=== PATIENT | male | born 1960 | race Caucasian/White ===

== ENCOUNTER → 2021-03-13 01:28 | Outpatient (CLI) | payer BC, OTHER, SELFPAY ==
[2021-03-14 20:43] LABS: SARS-CoV-2 RNA PCR Positive
== END ==
PROVIDERS: PCP Internal Medicine; Visit Provider Clinical Nurse Specialist
DX: U07.1 COVID-19 (principal)
CPT/HCPCS: C9803; U0003; U0005

== ENCOUNTER 2021-08-06 07:48 | Outpatient (CLI) | payer BC, OTHER, SELFPAY | END 2021-08-06 07:49 | disposition home or self-care (01) | PROVIDERS: PCP Internal Medicine; Visit Provider Nurse Practitioner | DX: H90.3 Sensorineural hearing loss, bilateral (principal) | CPT/HCPCS: 92557; 92567 ==

== ENCOUNTER 2021-09-11 14:00 | Outpatient (RCR) | payer OTHER, BC, SELFPAY ==
--- NOTE | 2021-08-06 11:06 | PTOPEVAL ---
PHYSICAL THERAPY EVALUATION AND PLAN OF CARE Thank you for referring Cachorro Darby to [facility].? The patient is scheduled to be seen for therapy?1x/week for 4 weeks. Please review, sign, date and return this plan of care RAOUL. I agree with and certify that the following plan of care is medically necessary. Referring Physician Date Attending Provider: Danuta Patiño NP Evaluation Outpatient Past Medical History Past Medical History Source of Past Medical History Patient Musculoskeletal History Hx Back Injury Yes: 3 injuries leading to surgery Hx Spinal Surgery Yes: 3, no hardware Hx Other Musculoskeletal Disorders Yes: R ACL arthroscopic repair and clean up Psychosocial History Hx Anxiety Yes Hx Depression Yes Hx Post Traumatic Stress Disorder Yes: [facility] Has Past Pain Affected Your Daily Life Yes Diagnosis radiculopathy Onset May, 2021 Subjective Information Pt states around Query Text:As Reported By Patient/ in 2020 fell and caught Family himself and states he strained a muscle in his neck. In june of 2021 he was having radiating symptoms and he suspected this was a heart attack, the ED ruled this out and attributed his radiating pain to his cervical spine. He is having radiating neck pain down his shoulder and into his forearm and into his 2nd and 3rd fingers. Pt states he has pulled a muscle in his neck before, but never a pain like this. Pt states he exercises regularly in the gym . Pt states he has had 3 previous back surgeries. He recieved a cortizone inection 07/07/21 and this helped minimally with his pain. Diagnostic Tests MRI For This Problem Yes Other Tests For This Problem No Self Report Pain Assessment Left Arm(s) Reported Pain Level 5 Pain Description Burning,Dull,Numbness, Throbbing Pain Radiation Left Arm,Left Elbow,Left Shoulder Other Pain Description numbness into 2nd and 3rd digit on the L L
--- NOTE | 2021-09-09 08:17 | PCPTNOTE ---
Patient did not show up for scheduled appointment this date.
--- NOTE | 2021-09-11 15:02 | PTOPEVAL ---
PHYSICAL THERAPY DISCHARGE NOTE Thank you for referring Cachorro Darby to [facility].? Please review, sign, date and return this plan of care RAOUL. I agree with and certify that the following plan of care is medically necessary. Referring Physician Date Attending Provider: Danuta Patiño METALLURGICAL SPECIALIST Discharge Pain History Diagnosis radiculopathy Onset May, 2021 Subjective Information is here today following 4 Query Text:As Reported By Patient/ weeks of physical therapy. He Family is continuing experience significant symptoms in the neck and hands. States that the pain is spreading. States that he is having surgery on for fusion to some of the cervical vertabrae. Self Report Pain Assessment Left Arm(s) Reported Pain Level 5 Pain Description Burning,Dull,Numbness, Throbbing Other Pain Description numbness into 2nd and 3rd digit on the L Pain Aggravating Factors Prolonged Position Pain Score Pain Score 5: Self Report Interventions Used Interventions Used By Clinicians Education,Exercise Pain Relief Interventions Used By Home Traction,Medication, Patient Position Change Cervical and Lumbar ROM Cervical ROM Cervical Flexion (0-60) 45 Query Text:Active in Degrees Cervical Extension (0-70) 35 Query Text:Active in Degrees Cervical Rotation Right (0-90) 55 Query Text:Active in Degrees Cervical Rotation Left (0-90) 45 Query Text:Active in Degrees Cervical ROM Comments Pain with end range of motion Upper Extremity Range of Motion General Upper Extremity Range of Motion Gross Upper Extremity Range of Motion B shoulders WFL Comments Upper Extremity Muscle Strength Testing General Upper Extremity Strength Gross Upper Extremity Strength Comments Grossly 5/5 bilaterally; left 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
== END 2021-09-12 16:04 | disposition home or self-care (01) ==
LOC: ANHPT 14:00
PROVIDERS: PCP Internal Medicine; Visit Provider Nurse Practitioner
DX: M54.12 Radiculopathy, cervical region (principal); H91.90 Unspecified hearing loss, unspecified ear
CPT/HCPCS: 97110; 97140; 97161

== ENCOUNTER → 2022-03-18 14:58 | Outpatient (CLI) | payer OTHER, SELFPAY ==
--- NOTE | ~2022-03-18 | XR_ITS ---
EXAM: XR knee RT 2V DATE: 03/18/2022 15:35 HISTORY: M25.561 - Pain in right knee . COMPARISON: None available. FINDINGS: Decreased mineralization. No fracture or dislocation. No lytic or blastic lesion. Mild med ial joint space narrowing. Mild tricompartmental osteophytosis. No erosion or periosteal change. Soft tissues within normal limits. Small volume joint fluid. IMPRESSION: Mild tricompartmental osteoarthritis. Small right knee joint effusion. Reviewed, dictated and finalized at location K. IMPRESSION: Mild tricompartmental osteoarthritis. Small right knee joint effusi on.
--- NOTE | ~2022-03-18 | XR_ITS ---
EXAM: XR hip RT min 2V DATE: 03/18/2022 15:35 HISTORY: M25.551 - Pain in right hip . COMPARISON: None available. FINDINGS: Normal mineralization. No fracture or dislocation. No lytic or blastic lesion. Mild superi or right hip joint space narrowing with subchondral sclerosis. No erosion or periosteal change. Soft tissues within normal limits. IMPRESSION: Mild right hip osteoarthritis. Reviewed, dictated and finalized at location K.
== END ==
PROVIDERS: PCP Nurse Practitioner; Visit Provider Nurse Practitioner
DX: M16.11 Unilateral primary osteoarthritis, right hip (principal); M17.11 Unilateral primary osteoarthritis, right knee
CPT/HCPCS: 73502; 73560

== ENCOUNTER 2022-05-21 09:48 | Outpatient (CLI) | payer OTHER, SELFPAY ==
--- NOTE | 2022-05-21 11:30 | NEURO_ITS ---
Impression: # Complains of left upper extremity pain and decreased hand grasp strength. Status post cervical surgery. # Left ulnar neuropathy across the elbow. # No Carpal Tunnel Syndrome. # Needle/EMG exam of proximal muscles abnormal. # Clinical correlation recommended. Motor Nerve Conduction Upper Extremities Median Nerve Conduction Velocity (m/sec) Terminal Latency (msec) Response Voltage(mV) Elbow-Wrist Wrist Elbow Wrist Right Left 59 3.8 1 1 Ulnar Nerve Conduction Velocity (m/sec) Terminal Latency (msec) Response Voltage(mV) Above Elbow Below Elbow Wrist Above Elbow Below Elbow Wrist Right Left 47 50 2.6 7 6 8 F-Wave Latency Median (ms) Ulnar (ms) Right Left 28.9 28.7 Sensory Nerve Conduction Upper Extremities Median Nerve Stimulation Terminal Latency (msec) Wrist/Digit Response Voltage (uV) Wrist Right Left 3.2/3.1 52/28 Ulnar Nerve Stimulation Terminal Latency (msec) Wrist/Digit Response Voltage (uV) Wrist Right Left 2.8 27 Radial Nerve Terminal Latency (msec) Response Voltage(mV) Right Left 2.3 18 Left Right Muscles Examined Fibrillation Fasciculation Scarcity Voltage Duration Left Right Left Right Left Right Left Right Left Right X Deltoid X Biceps X Brachioradialis X Triceps X Pronator Teres X Ext Indicis X Ext Digitorum X Abd Poll Brev X 1st Dorsal Interosseus Reduced >12ms X Abd Dig Min Reduced >12ms MTDD
== END 2022-05-21 09:49 | disposition home or self-care (01) ==
LOC: ANHNEURO 09:50
PROVIDERS: PCP Nurse Practitioner; Visit Provider Neurological Surgery
DX: M79.602 Pain in left arm (principal); G56.22 Lesion of ulnar nerve, left upper limb
CPT/HCPCS: 95886; 95909

== ENCOUNTER 2023-09-01 09:44 | Outpatient (CLI) | payer BC, OTHER, SELFPAY ==
[2023-09-01 18:41] LABS: Basophils Percent Auto 0.5 % (0.2-1.2); Eosinophils Absolute Auto 0.1 K/mm3 (0-0.3); Eosinophils Percent Auto 1.5 % (0-4.4); Hematocrit 41.1 % (42.0-52.0); Hemoglobin 13.4 g/dL (14.0-18.0); Immature Granulocyte Absolute 0.02 K/mm3 (0.00-0.031); Immature Granulocyte Percent A 0.3 % (0-0.5); Lymphocytes Absolute Auto 1.93 K/mm3 (0.9-3.2); Lymphocytes Percent Auto 31.7 % (18.3-44.2); Mean Corpuscular HGB Conc 32.6 g/dl (32-36); Mean Corpuscular Hemoglobin 29.3 pg (26-34); Mean Corpuscular Volume 89.7 fl (80-100); Mean Platelet Volume 10.7 fl (7.4-10.4); Monocytes Absolute Auto 0.7 K/mm3 (0.1-0.6); Monocytes Percent Auto 11.7 % (2.6-8.5); Neutrophils Absolute Auto 3.3 K/mm3 (1.3-6.7); Neutrophils Percent Auto 54.3 % (45.5-73.1); Platelet Count Result 260 k/mm3 (150-375); Red Blood Count 4.58 M/mm3 (4.6-6.20); Red Cell Distribution Width 13.2 % (11.5-14.5); White Blood Count 6.1 K/mm3 (4.5-10.0)
[2023-09-01 18:58] LABS: Alanine Aminotransferase 35 U/L (6-50); Albumin Level 3.9 g/dL (3.5-5.1); Alkaline Phosphatase 65 U/L (38-126); Anion Gap 3 mmol/L (8-16); Aspartate Amino Transferase 43 U/L (17-59); Bilirubin,Total 0.4 mg/dL (0.2-1.3); Blood Urea Nitrogen 22 mg/dL (9-20); Calcium 9.3 mg/dL (8.4-10.2); Carbon Dioxide 30 mmol/L (22-30); Chloride 106 mmol/L (98-107); Estimated Glomerular Filt Rate > 60; Glucose 57 mg/dL (65-110); Potassium 4.1 mmol/L (3.4-5.0); Sodium 139 mmol/L (137-145)
[2023-09-01 19:07] LABS: Appearance Urine Turbid (Clear); Bacteria Urine None Seen /hpf; Bilirubin Urine Negative (Negative); Blood Urine Negative (Negative); Color Urine Yellow (Yellow); Glucose Urine UA Negative (Negative); Ketones Urine Negative (Negative); Leukocyte Esterase Ur Negative LEU/UL (Negative); Nitrate Urine Negative (Negative); Non Pathogenic Casts 0-2; Protein Urine Negative (Negative); RBC Urine 0-2 /hpf (0-2); Specific Grav Ur 1.026 (1.001-1.035); Squamous Epithelial Cell Urine None seen /hpf (Few); Urobilinogen Urine 0.2 mg/dL (<2.0); WBC Urine 0-5 /hpf
[2023-09-01 19:15] LABS: HIV 1/2 Ab P24 Ag Result Negative (Negative)
[2023-09-01 19:20] LABS: Add Urine Microscopic? YES
[2023-09-01 19:27] LABS: Erythrocyte Sedimentation Rate 12 mm/hr (0-20)
[2023-09-01 20:21] LABS: Hepatitis C Virus Antibody Negative (Negative)
[2023-09-02 11:14] LABS: Folic Acid 4.1 ng/mL (2.76->20)
== END 2023-09-01 09:45 | disposition home or self-care (01) ==
LOC: ANHGOSHLAB 09:46
PROVIDERS: PCP Internal Medicine; Visit Provider Nurse Practitioner
DX: R63.4 Abnormal weight loss (principal); D64.9 Anemia, unspecified
CPT/HCPCS: 36415; 80053; 81001; 82607; 82728; 82746; 84443; 85025; 85652; 86703; 86803; G0432

== ENCOUNTER → 2023-09-01 10:00 | Outpatient (CLI) | payer BC, OTHER, SELFPAY ==
--- NOTE | ~2023-09-01 | XR_ITS ---
Clinical Indication: Weight loss PA and lateral views of the chest: Comparison: None Findings: Small calcified granulomas are noted in the right lung. The lungs are otherwise clear, with out evidence of focal consolidation or pleural effusion. Cardiomediastinal silhouette is within norm al limits. Bones and soft tissues are unremarkable. Impression: No significant abnormality. Reviewed, dictated and finalized at [facility]. [employer] Impression: No significant abnormality.
== END ==
PROVIDERS: PCP Nurse Practitioner; Visit Provider Nurse Practitioner
DX: R63.4 Abnormal weight loss (principal)
CPT/HCPCS: 71046

== ENCOUNTER 2024-05-24 10:47 | Outpatient (CLI) | payer OTHER, SELFPAY ==
[2024-05-24 13:27] LABS: Cholesterol 144 mg/dL (0-200); HDL Direct 35 mg/dL; Triglycerides 77 mg/dL (<150)
[2024-05-24 13:38] LABS: LDL Cholesterol Direct 70 mg/dL
[2024-05-24 13:40] LABS: Basophils Percent Auto 0.3 % (0.2-1.2); Eosinophils Absolute Auto 0.1 K/mm3 (0-0.3); Eosinophils Percent Auto 1.6 % (0-4.4); Hematocrit 52.6 % (42.0-52.0); Hemoglobin 17.3 g/dL (14.0-18.0); Immature Granulocyte Absolute 0.01 K/mm3 (0.00-0.031); Immature Granulocyte Percent A 0.1 % (0-0.5); Lymphocytes Absolute Auto 2.45 K/mm3 (0.9-3.2); Lymphocytes Percent Auto 36.3 % (18.3-44.2); Mean Corpuscular HGB Conc 32.9 g/dl (32-36); Mean Corpuscular Hemoglobin 29.5 pg (26-34); Mean Corpuscular Volume 89.8 fl (80-100); Mean Platelet Volume 10.2 fl (7.4-10.4); Monocytes Absolute Auto 0.8 K/mm3 (0.1-0.6); Monocytes Percent Auto 11.4 % (2.6-8.5); Neutrophils Absolute Auto 3.4 K/mm3 (1.3-6.7); Neutrophils Percent Auto 50.3 % (45.5-73.1); Platelet Count Result 239 k/mm3 (150-375); Red Blood Count 5.86 M/mm3 (4.6-6.20); Red Cell Distribution Width 13.3 % (11.5-14.5); White Blood Count 6.8 K/mm3 (4.5-10.0)
[2024-05-24 13:56] LABS: Prostate Specific Antigen 0.8 ng/mL (< OR = 4.0)
== END 2024-05-24 10:48 | disposition home or self-care (01) ==
LOC: ANHGOSHLAB 10:49
PROVIDERS: PCP Nurse Practitioner; Visit Provider Nurse Practitioner
DX: D64.9 Anemia, unspecified (principal); Z12.5 Encounter for screening for malignant neoplasm of prostate; Z13.220 Encounter for screening for lipoid disorders
CPT/HCPCS: 36415; 80061; 82728; 84153; 85025; G0103

== ENCOUNTER 2024-05-31 00:07 | Day surgery (SDC) | payer OTHER, SELFPAY ==
[2024-05-17 14:28] VITALS: BMI 27.5
[2024-05-31 08:23] VITALS: BP 122/79; PULSE 72; RESP 18; TEMP 36.4; O2SAT 99
[2024-05-31] MEDS: LACTATED RINGERS 1,000 ML 150 ML IV CONT (08:34)
--- NOTE | 2024-05-31 09:07 | P.PNAN_ITS ---
Anes - Initial Pre Proc Eval Procedure: Operation Date: 05/31/24 09:30 Proposed Procedures p Screening Colonoscopy - Jn Acosta DO Date/Time: 05/31/24 09:07 Surgeon: Jn Acosta DO Pre Op Diagnosis: Screening for malignant neoplasm of colon Patient Data Age: 63 Gender: M Height: 1.65 m Weight: 80 kg Last Vital Signs Temp 97.5 F L 05/31/24 08:23 Pulse 72 05/31/24 08:23 Resp 18 05/31/24 08:23 BP 122/79 05/31/24 08:23 Pulse Ox 99 05/31/24 08:23 O2 Del Method Room Air 05/31/24 08:23 Allergies Allergy/AdvReac Type Severity Reaction Status Date / Time No Known Allergies Allergy Verified 05/31/24 08:21 Home Medications Medication Instructions Recorded Confirmed Type Adults Multivitamin 1 tablet PO DAILY 05/17/24 05/31/24 History Aspirin Child 81 mg PO DAILY 05/17/24 05/31/24 History B12 2,500 mcg PO DAILY 05/17/24 05/31/24 History Fish Oil 7,500 mcg PO DAILY 05/17/24 05/31/24 History cholecalciferol (vitamin D3) 6,000 units PO DAILY 05/17/24 05/31/24 History testosterone cypionate 100 mg/mL 0.75 mg IM WEEKLY 05/17/24 05/31/24 History intramuscular oil zinc-magnesium aspart-vit B6 2 tablet PO DAILY 05/17/24 05/31/24 History Patient hx anesthesia problems: none Family hx anesthesia problems: none Results Review: All pre-operative results and documents have been reviewed as part of the pre- operative evaluation. 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 Hearing loss Hemorrhoids Herniated disc Hypogonadism in male Lumbar radiculopathy Mumps Right knee pain Sleep apnea Vision abnormalities Weight gain Surgical History Surgical History (Updated 05/24/24 @ 09:13 by Ritu Beal CMA) H/O eye surgery H/O lumbosacral spine surgery x 3 1984, 1999, 2002 H/O neck surgery 2022 H/O surgical fusion joint C6 - C7 ACDF 09/23/21 Family History Family History Mother Family history of malignant neoplasm Father Family history of coronary artery disease Social History Social History Smoking status: Never smoker Smokeless tobacco user: chewing tobacco Alcohol intake: current Drinks per week: 1 Alcohol use details: occasional Substance use: never Substance use type: does not use Lack of Transportation: No Lack of Food: Never True Current Housing: I Have Housing Concerned About Future Housing: No Difficulty Paying Gas/Electric Bills: No Difficulty Paying for Meds: No Currently Unemployed: No Education: Associate Degree Difficulty w/ Childcare or Family Care: No Living arrangements: with family Occupation/Education: retired Gender identity (if verbalized by the patient): Male Spiritual care concerns: No Anes - Eval Final PreProcedure Day of Procedure 05/31/24 09:07 Patient weight: normal Heart: regular rate and rhythm Lungs: clear to auscultation Airway: Mallampati scale class II Neurological: alert and oriented Last oral intake: >/= 8 hours ASA classification: II Emergent: no Anesthetic plan: proceed Anesthesia type and monitoring: general GIVS and standard monitoring Results Review: All pre-operative results and documents have been reviewed as part of the pre- operative evaluation. Informed Consent: The patient's anesthetic plan and its attendant risks and benefits were discussed with the patient/family/POA. Questions were solicited and answers provided to the satisfaction of the patient/family/POA.
--- NOTE | 2024-05-31 09:35 | PM.IMHP ---
H&P: HPI History of Present Illness Date/Time: 05/31/24 09:35 Chief Complaint: History of colon polyps Narrative: this is a 63-year-old man who presents for colonoscopy. His last colonoscopy was 5 years ago and multiple polyps were removed at that time. He denies any hematochezia or melena. He denies any family history of colon cancer. Review of Systems Review of Systems: All systems reviewed & are unremarkable except as noted in HPI and below Constitutional: Constitutional: Denies chills, Denies fever(s), Denies headache(s) and Denies weight loss Eyes: Eyes: Denies change in vision ENT: Denies dizziness, Denies headache(s), Denies neck mass and Denies throat swelling Cardiovascular: Cardiovascular: Denies chest pain, Denies lightheadedness and Denies dyspnea Respiratory: Respiratory: Denies cough, Denies dyspnea and Denies wheezing Gastrointestinal: Gastrointestinal: Denies abdominal pain, Denies change in bowel habits, Denies nausea and Denies vomiting Genitourinary: Genitourinary: Denies hematuria and Denies dysuria Musculoskeletal: Musculoskeletal: Reports as per HPI Integumentary/Breasts: Skin/Breast: Reports as per HPI Neurologic: Denies dizziness and Denies headache(s) Allergic/Immunologic: Allergic/Immunologic: Denies throat swelling and Denies wheezing [facility] Past Medical History Medical History (Updated 05/24/24 @ 10:04 by Danuta Patiño NP) Acute right hip pain Arthritis Chicken pox Chondromalacia, 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 Hearing loss Hemorrhoids Herniated disc Hypogonadism in male Lumbar radiculopathy Mumps Right knee pain Sleep apnea Vision abnormalities Weight gain Surgical History Surgical History (Updated 05/24/24 @ 09:13 by Ritu Beal CMA) H/O eye surgery H/O lumbosacral spine surgery x 3 1984, 1999, 2002 H/O neck surgery 2022 H/O surgical fusion joint C6 - C7 ACDF 09/23/21 Family History Family History Mother Family history of malignant neoplasm Father Family history of coronary artery disease Social History Social History Smoking status: Never smoker Smokeless tobacco user: chewing tobacco Alcohol intake: current Drinks per week: 1 Alcohol use details: occasional Substance use: never Substance use type: does not use Lack of Transportation: No Lack of Food: Never True Current Housing: I Have Housing Concerned About Future Housing: No Difficulty Paying Gas/Electric Bills: No Difficulty Paying for Meds: No Currently Unemployed: No Education: Associate Degree Difficulty w/ Childcare or Family Care: No Living arrangements: with family Occupation/Education: retired Gender identity (if verbalized by the patient): Male Spiritual care concerns: No Meds Home Medications and Allergies Home Medications Medication Instructions Recorded Confirmed Type Adults Multivitamin 1 tablet PO DAILY 05/17/24 05/31/24 History Aspirin Child 81 mg PO DAILY 05/17/24 05/31/24 History B12 2,500 mcg PO DAILY 05/17/24 05/31/24 History Fish Oil 7,500 mcg PO DAILY 05/17/24 05/31/24 History cholecalciferol (vitamin D3) 6,000 units PO DAILY 05/17/24 05/31/24 History testosterone cypionate 100 mg/mL 0.75 mg IM WEEKLY 05/17/24 05/31/24 History intramuscular oil zinc-magnesium aspart-vit B6 2 tablet PO DAILY 05/17/24 05/31/24 History Allergies Allergy/AdvReac Type Severity Reaction Status Date / Time No Known Allergies Allergy Verified 05/31/24 08:21 Vital Signs Vital Signs - 24 hr 05/31/24 08:23 Temperature 97.5 F L Pulse Rate 72 Respiratory Rate 18 Blood Pressure 122/79 Pulse Oximetry 99 Oxygen Delivery Room Air Exam Const: General: no acute distress and alert Orientation/consciousness: patient oriented x3 HENMT: Head: normocephalic and atraumatic Ears: hearing grossly normal bilaterally Face/Nose/Sinus: Normal nares present Mouth: Yes Normal oral and palatal mucosa present Eyes: Periorbital: periorbital findings normal Sclera: sclerae normal EOM: EOMs intact bilaterally Neck: Neck: normal visual inspection, no lymphadenopathy and trachea midline Chest: Chest palpation & inspection: normal inspection of the chest Resp: Effort & Inspection: normal respiratory effort Auscultation: clear to auscultation bilaterally Cardio: Jugular venous distension: no JVD Rate: regular rate Rhythm: regular rhythm Heart sounds: S1 normal heart sound present and S2 normal heart sound present Peripheral pulses: Peripheral pulses 2+ throughout GI: Inspection: normal to inspection GI Palp: Yes Soft to palpation, No Tenderness to palpation present (GI), No Guarding due to palpation present (GI) and No Rebound tenderness present Percussion: Yes normal to percussion Auscultation: normal bowel sounds : General: Yes no CVA tenderness Back/Spine/Pelvis: Back: no CVA tenderness Neuro: General: patient oriented x3, no focal motor deficits and CN's II-XI intact bilaterally Cognition (Neuro): normal cognition Speech: normal speech Motor exam (neuro): 5/5 motor strength present throughout Extrem: General: capillary refill normal and no clubbing, cyanosis or edema Assessment and Plan Assessment and plan (1) History of colon polyps: Code(s): Z86.010 - Personal history of colon polyps Status: Acute Assessment and Plan: I have recommended colonoscopy. I have discussed the procedure, risks, benefits, and alternatives. Questions were answered. Patient is agreeable to proceed.
[2024-05-31 09:58] VITALS: BP 93/58; PULSE 72; RESP 14; O2SAT 95
[2024-05-31 10:08] VITALS: BP 97/65; PULSE 70; RESP 18; O2SAT 100
[2024-05-31 10:18] VITALS: BP 115/74; PULSE 69; RESP 16; O2SAT 100
== END 2024-05-31 10:29 | disposition home or self-care (01) ==
PROVIDERS: PCP Nurse Practitioner; Visit Provider Surgery
PROC: 0DJD8ZZ Inspection of Lower Intestinal Tract, Via Natural or Artificial Opening Endoscopic (ICD-10-PCS; CPT 45378; principal; 2024-05-31 09:30)
DX: Z12.11 Encounter for screening for malignant neoplasm of colon (principal); M16.10 Unilateral primary osteoarthritis, unspecified hip; M17.10 Unilateral primary osteoarthritis, unspecified knee; E29.1 Testicular hypofunction; M54.16 Radiculopathy, lumbar region; G47.30 Sleep apnea, unspecified; F17.220 Nicotine dependence, chewing tobacco, uncomplicated; Z79.82 Long term (current) use of aspirin; Z98.890 Other specified postprocedural states; Z98.1 Arthrodesis status; Z86.0100 Personal history of colon polyps, unspecified; Z80.9 Family history of malignant neoplasm, unspecified; Z82.49 Family history of ischemic heart disease and other diseases of the circulatory system
CPT/HCPCS: 45378; J2003; J2704; J7120

== ENCOUNTER 2024-09-29 11:23 | Outpatient (CLI) | payer OTHER, SELFPAY ==
--- NOTE | ~2024-09-29 | XR_ITS ---
XR knee RT 3V 09/29/2024 12:04 Indication: Right knee pain Procedure: 3 views right knee Comparison: 03/28/2022 Findings: No fracture, subluxation or dislocation. No significant joint effusion. No foreign bodies. Impression: 1: No acute bone or joint abnormality. Reviewed, dictated and finalized at location A. Impression: 1: No acute bone or joint abnormality.
== END 2024-09-29 11:24 | disposition home or self-care (01) ==
LOC: GOSHIMG 11:23
PROVIDERS: PCP Clinical Nurse Specialist; Visit Provider Clinical Nurse Specialist
DX: M25.561 Pain in right knee (principal)
CPT/HCPCS: 73562

== ENCOUNTER 2025-04-05 11:24 | Emergency (ER) | payer OTHER, MEDICARE, SELFPAY ==
--- NOTE | ~2025-04-05 | XR_ITS ---
EXAMINATION: XR chest 2V 04/05/2025 15:51 INDICATION: Left basilar infiltrate TECHNIQUE:Frontal and lateral images of the chest were obtained COMPARISON: 04/05/2025 and 09/01/2023 FINDINGS: Cervical hardware is noted. Heart is unenlarged. No pneumothorax or pleural effusion. No free air under the diaphragm. No focal pulmonary consolidation. Stable tiny calcified granulomas IMPRESSION: 1: No focal pulmonary consolidation identified. Reviewed, dictated and finalized at location Q.
--- NOTE | ~2025-04-05 | CT_ITS ---
EXAMINATION: CTA brain carotid DATE: 04/05/2025 15:26 INDICATION: Headache. Positional disequilibrium. TECHNIQUE: Computed tomographic angiography (CTA) of the head was performed without and with 100 mL Omnipaque-350 intravenous contrast. CTA of the neck was performed with intravenous contrast. Automated exposure control and iterative reconstruction technique were employed. The dose-length product was 1694.53 mGy- cm. Maximum intensity projection and volume rendered 3D-reconstructions were created by the technologist on a separate workstation. COMPARISON: None. FINDINGS: HEAD CTA: There is no intracranial hemorrhage, acute infarction, or abnormal intracranial mass lesion. The ventricles are normal in size. There are likely changes of ocular lens replacement surgeries. There is mild mucosal thickening in the paranasal sinuses. The mastoid air cells are normal. The vertebral arteries are codominant. There is no significant stenosis of basilar artery or the posterior cerebral arteries. There is no significant stenosis of the intracranial internal carotid arteries or anterior or middle cerebral arteries. Anterior communicating artery is normal. The posterior communicating arteries are normal. There is no aneurysm. NECK CTA: Calcified right lung nodules are consistent with old granulomatous disease. There is a 2.9 x 1.5 cm right paratracheal lymph node. There is no central stenosis of the vertebral arteries. There is mild plaque in the proximal internal carotid arteries. There is 0% stenosis of the proximal right internal carotid artery relative to normal distal artery lumen diameter (NASCET criteria). There is 0% stenosis of the proximal left internal carotid artery relative to normal distal artery lumen diameter. There are changes of anterior fusion procedure from C4 to C7. IMPRESSION: 1. Normal brain. 2. No aneurysm or significant intracranial arterial stenosis. 3. 0% stenosis of the proximal internal carotid arteries relative to normal distal artery lumen diameters (NASCET criteria). 4. Enlarged mediastinal lymph node, which may be reactive, but metastatic disease or lymphoma cannot be excluded. Consider chest CT. Reviewed, dictated and finalized at location E. IMPRESSION: 1. Normal brain. 2. No aneurysm or significant intracranial arterial stenosis. 3. 0% stenosis of the proximal internal carotid arteries relative to normal dis allyssa artery lumen diameters (NASCET criteria). 4. Enlarged mediastinal lymph node, which may be reactive, but metastatic disea se or lymphoma cannot be excluded. Consider chest CT.
--- NOTE | ~2025-04-05 | XR_ITS ---
Examination: XR chest 1V portable Clinical History: Chest pain Comparison: 09/01/2023 Technique: Portable AP Findings: Heart size normal. Streaky left basilar airspace opacity suspected, alternatively overlying soft tissue artifact. No acute bony abnormality. IMPRESSION: 1. Left basilar airspace disease not excluded. Recommend PA and lateral films with deep inspiration. Reviewed, dictated and finalized at location R.
--- NOTE | ~2025-04-05 | CT_ITS ---
EXAMINATION: CT chest abdomen pelvis w con DATE: 04/05/2025 17:38 INDICATION: Mediastinal lymphadenopathy. TECHNIQUE: Computed tomography (CT) of the chest, abdomen, and pelvis was performed with 100 mL Omnipaque 350 intravenous contrast. Automated exposure control and iterative reconstruction technique were employed. The dose-length product was 540.33 mGy-cm. COMPARISON: None FINDINGS: CHEST CT: Calcified bilateral pulmonary nodules and calcified right hilar lymph nodes are consistent with old granulomatous disease. There is mild atelectasis bilaterally. No pleural effusion. The heart size is normal. No pericardial effusion. There is a prominent pericardial recess in the area of the right para tracheal lymph node chain, a normal variant. There are no pathologically enlarged lymph nodes. There are changes of anterior fusion procedure in cervical spine. There is mild chronic anterior wedging of multiple vertebral bodies. There is severe thoracic spondylosis. ABDOMEN/PELVIS CT: There are cysts in the liver measuring up to 2.8 cm. There is a gallstone in the gallbladder, which is normal in size. The spleen, pancreas, and adrenal glands, and right kidney are normal. There is a 9 mm cyst in left kidney. There is a left inguinal hernia containing fat. The prostate is mildly enlarged. There are no dilated loops of bowel. The appendix is normal. There are no pathologically enlarged lymph nodes. There is no free intraperitoneal fluid. There is severe lumbar spondylosis. There is mild chronic anterior wedging of L1 vertebral body. IMPRESSION: 1. No pathologically enlarged lymph nodes. 2. Left inguinal hernia containing fat. Reviewed, dictated and finalized at location E.
--- NOTE | 2025-04-05 11:33 | ECG_ITS ---
Test Date: 2025-04-05 11:40:04 Measurements Intervals [place] Rate: 66 P: 27 NE: 154 QRS: 44 QRSD: 110 T: 2 QT: 370 QTc: 390 Interpretive Statements SINUS RHYTHM BASELINE ARTIFACT- I, II, III, AVR, AVL, AVF, V1-V2 NORMAL ECG No previous ECG available for comparison Electronically Signed On 04-05-2025 11:50:17 CDT by Lalo Kent D.O.
[2025-04-05 12:15] VITALS: BP 122/72; PULSE 69; RESP 16; O2SAT 93
--- OUTSIDE RECORDS SUMMARY | 2025-04-05 12:24 | XMS_ITS | Encounter Summary ---
Author Organization [facility] Address [address] [place] [address] Phone Care Team Providers Care Weight Caller Name Role Phone Danuta Patiño NP Primary Care Provider [phone] Encounter Details Date Type Department Care Team (Late st Contact Info) Description 10/08/2022 Telephone 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
--- OUTSIDE RECORDS SUMMARY | 2025-04-05 12:24 | XMS_ITS | Encounter Summary ---
Author Organization [facility] Address [facility] [place] [address] Care Team Providers Care Usps Letter Carrier Name Role Phone Mookie Giraldo DO Primary Care Provider [phone] Mile Ruffin BUILD MASTER Unavailable [phone] Catarino Figueroa MD Unavailable [phone] Letty Sandoval MD Unavailable [phone] Encounter Details Date Type Department Care Team (Late st Contact Info) Description 09/10/2021 Prep for Procedure [facility] Pre-Ad[facility] [place], [place] [id number] Jr Ramon MD 3 [facility] [address] [place], [place] [id number] Social History Tobacco Use Types Packs/Day Years Used Date Smoking Tobacco: Never Smokeless Tobacco: Former Chew Quit: 2014 Comments:chewed tobacco for about 40 years, sometimes at work or out hunting Alcohol Use Standard Drinks/Week Comments Yes 0 (1 standard drink = 0.6 oz pure alcohol) every once in a while. 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 No / Unsure 09/10/2021 8:12 AM SELENIUM PLANT OPERATOR documented as of this encounter Functional Status * Calculated C-SSRS Risk Score (Lifetime/Recent) Answer Date of Assessment Author Status No Risk Indicated 09/10/2021 8:55 AM SELENIUM PLANT OPERATOR Brinda Felton RN Active * [place] Suicide Severity Rating Scale (Screener/Recent Self-Report) Question Answer Date of Assessment Author Status 1. Wish to be (Past 1 Month) No 09/10/2021 8:55 AM SELENIUM PLANT OPERATOR Araceli eFlton RN A ctive 2. Non-Specific Active Suicidal Thoughts (Past 1 Month) No 09/10/2021 8:55 AM SELENIUM PLANT OPERATOR Araceli Felton RN A ctive 6. Suicidal Behavior (Lifetime) No 09/10/2021 8:55 AM SELENIUM PLANT OPERATOR Araceli Felton RN A ctive documented as of this encounter Plan of Treatment Not on file documented as of this encounter Results * TYPE & SCREEN (09/10/2021 9:15 AM SELENIUM PLANT OPERATOR) ABO/RH B POSITIVE 09/10/2021 12:14 PM SELENIUM PLANT OPERATOR [facility] ANTIBODY SCREEN NEGATIVE 09/10/2021 12:14 PM [facility] SAMPLE EXPIRATION 09/26/2021,2 359 09/23/2021 8:01 AM T [facility] COMMENT NO HISTORY OF TRANSFUSIONS , OR ANTIBODIES, NEW SPECIMEN NOT NEEDED 09/23/2021 8:01 AM [facility] 09/10/2021 9:15 AM SELENIUM PLANT OPERATOR us Jr Ramon MD BLOOD BANK TEST ORDERABLES F inal Result [facility] [address] [place] [address], [place] [phone] documented in this encounter Visit Diagnoses Diagnosis Preop examination- Primary Preoperative examination, unspecified documented in this encounter Additional Health Concerns Infection Onset Date Last Indicated Resolved Time COVID-19 Rule Out 09/20/2021 09/20/2021 09/20/2021 7:52 PM CDT documented as of this encounter Care Teams Usps Letter Carrier Relationship Specialty Start Date End Date Mookie Giraldo DO [address] [place] [address] PCP - General INTERNAL MEDICINE 09/10/21 Mile Ruffin NP [address] [place] [address] FAMILY PRACTICE 09/10/21 Catarino Figueroa MD [address] [place] [address] INTERNAL MEDICINE 09/10/21 Letty Sandoval MD [address] [place] [address] Pain Medicine 09/10/21 documented as of this encounter
--- OUTSIDE RECORDS SUMMARY | 2025-04-05 12:24 | XMS_ITS | Clinical Summary ---
Author Organization [facility] Address [address] [place] [address] Care Team Providers Care Crusher And Binder Operator Name Role Phone Mookie Giraldo DO Primary Care Provider [phone] Mile Ruffin CLASSIFIED ADVERTISING SUPERVISOR Unavailable [phone] Catarino Figueroa MD Unavailable [phone] Letty Sandoval MD Unavailable [phone] Allergies No known active allergies Medications testosterone enanthate 200 MG/ML injection Inject 1 mL (200 mg total) into the muscle once a week. Holding past 2 weeks Active Prasterone, DHEA, (DHEA OR) Take 1 tablet by mouth daily. Active vitamin D3, cholecalciferol , 125 mcg capsule Take 1 capsule (125 mcg total) by mouth daily. Active CREATINE OR Take 1 tablet by mouth daily. Active senna-docusate (SENOKOT-S) 8.6-50 MG tablet Take 1 tablet by mouth daily. 60 tablet 1 01/12/2023 Active HYDROcodone-xi taminophen (NORCO) 5-325 MG tabletIndicatio ns:Acute Pain < 7 Day Supply,post op Take 1-2 tablets by mouth every 6 (six) hours as needed for Pain. Indications: Acute Pain < 7 Day Supply, post op 45 tablet 01/12/2023 Active Active Problems Problem Noted Date Diagnosed Date Cervical radiculopathy 01/12/2023 Family History Medical History Relation Comments Heart Disease Father LVAD Cancer Mother lung and brain c ancers Relation Status Comments Daughter 1 Alive Daughter 2 Alive Father (Age 72) had LVAD, infe ction from LVAD Mother (Age 51) of cancer , lungs, brains Son 1 Alive Son 2 Alive Son 3 Alive Social History Tobacco Use Types Packs/Day Years Used Date Smoking Tobacco: Never Smokeless Tobacco: Former Chew Quit: 2015 Tobacco Cessation:Counseling Given: Not Answered Comments:chewed tobacco for about 40 years, sometimes at work or out hunting Alcohol Use Standard Drinks/Week Comments Yes 0 (1 standard drink = 0.6 oz pur e alcohol) maybe 3 a month at the most Humiliation, Afraid, Rape, and Kick questionnair e Answer Date Recorded Within the last year, have y ou been afraid of your partner or ex-partner? No 01/12/2023 Within the last year, have y ou been humiliated or emotionally abused in other ways by your partner or ex-partner? No Within the last year, have y ou been kicked, hit, slapped, or otherwise physically hurt by your partner or ex-partner? No 01/12/2023 Within the last year, have y ou been raped or forced to have any kind of sexual activity by your partner or ex-partner? No 01/12/2023 Overall Financial Resource Strain (CARDIA) Answe r Date Recorded How hard is it for you to pa y for the very basics like food, housing, medical care, and heating? Not hard at all 01/12/2023 [facility] - Occupational Stress Questionnaire Answer Date Recorded Do you feel stress - tense, restless, nervous, or anxious, or unable to sleep at night because your mind is troubled all the time - these days? Not at all 01/12/2023 Exercise Vital Sign Answer Date Recorde d On average, how many days pe r week do you engage in moderate to strenuous exercise (like a brisk walk)? 4 days 01/12/2023 On average, how many minutes do you engage in exercise at this level? 60 min 01/12/2023 Hunger Vital Sign Answer Date Recorded Within the past 12 months, y ou worried that your food would run out before you got the money to buy more. Never true 01/13/20 23 Within the past 12 months, t he food you bought just didn't last and you didn't have money to get more. Never true 01/12/2023 PRAPARE - Transportation Answer Date Re corded In the past 12 months, has l ack of transportation kept you from medical appointments or from getting medications? No 01/03 In the past 12 months, has l ack of transportation kept you from meetings, work, or from getting things needed for daily living? No 01/12/2023 Housing Stability Vital Sign Answer Milo e Recorded In the last 12 months, was t here a time when you were not able to pay the mortgage or rent on time? No 01/12/2023 In the last 12 months, how many places have you lived? 1 01/12/2023 In the last 12 months, was t here a time when you did not have a steady place to sleep or slept in a senior living (including now)? No 01/12/2023 Sex and Gender Information Value Date Recorded Sex Assigned at Not on file Legal Sex Male 1:36 PM DINKEY BRAKEMAN Gender Identity Male 09/09/2021 4:18 PM DINKEY BRAKEMAN Sexual Orientation Straight 09/09/2021 4: 18 PM DINKEY BRAKEMAN Last Filed Vital Signs Vital Sign Reading Time Taken Comments Blood Pressure 137/64 01/13/2023 8:00 AM CDT Pulse 78 01/13/2023 8:00 AM CDT Temperature 36.4 C (97.5 F) 01/13/2023 8:00 AM CDT Respiratory Rate 17 01/13/2023 8:00 AM CDT Oxygen Saturation 95% 01/13/2023 8:00 AM CDT Inhaled Oxygen Concentration - - Weight 81.4 kg (179 lb 7.3 oz) 01/12/2023 8:00 A M CDT Height 162.6 cm (5' 4) 01/05/2023 1:39 PM CDT Body Mass Index 30.8 01/05/2023 1:39 PM CDT Plan of Treatment Health Maintenance Due Date Last Done Comments Colorectal Cancer Screening Colonoscopy (10 Years) 1962 Annual Physical 1965 Hepatitis C 1980 Zoster Vaccines (1 of 2) 2012 Pneumococcal Vaccine: 50+ Years (2 of 2 - PCV) 06/05/2016 06/05/2015 COVID-19 Vaccine ( season) 2025 Influenza Adult (#1) 2025 04/19/2015, 04/05/2010, 08/09/2009, Additional history exists DTaP, Tdap and Td Vaccines (4 - Td or Tdap) 02/19/2030 02/20/2020, 03/03/2017, 07/06/2007, Additional history exists RSV Immunization or 60+ Years (1 - 1-dose 75+ series) 2037 Meningococcal Vaccine Aged Out 09/23/2002, 999 No longer eligible based on patient's age to complete this topic Meningococcal B Vaccine Aged Out No l onger eligible based on patient's age to complete this topic RSV Immunizations Under 20 Months Aged Out No longer eligible based on patient's age to complete this topic Medical Devices Implanted Type Area Audio Recording Engineer Device Identifier Shelf Expiration Date Model / Serial / Lot Graft Bone I Factor 1cc Allograft Putty Syringe - [id number] Implanted:Qty: 1 on 09/23/2021 by Jr Ramon MD at [facility] Bone N/A: Spine Cervical [employer] [id number] 05/05/2024 700-010 / / [id number] 16mm Plate Implanted:Qty: 1 on 09/23/2021 by Jr Ramon MD at [facility] Plate N/A: Spine Cervical 30-0116 / / Zavation 7mm Plate Implanted:Qty: 1 on 01/12/2023 by Jr Ramon MD at [facility] Plate 170-07 / / . 12 Mm Plate Zavation Implanted:Qty: 1 on 01/12/2023 by Jr Ramon MD at [facility] Plate N/A: Spine Cervical . 30-0112 / / . 4.0 X 14mm Screw Implanted:Qty: 4 on 09/23/2021 by Jr Ramon MD at [facility] Screw N/A: Spine Cervical 31-4014 / / Description:Audio Recording Engineer: Za vation 4.0mm X 16mm Screw Zavation Implanted:Qty: 2 on 01/12/2023 by Jr Ramon MD at [facility] Screw N/A: Spine Cervical . 31-4016 / / . Tissue Surgiflo 8ml - [id number] Implanted:Qty: 1 on 01/12/2023 by Jr Ramon MD at [facility] Sealant [employer] . 11/03/2023 [id number] / / [id number] Zavation 7mm Spacer Implanted:Qty: 1 on 01/12/2023 by Jr Ramon MD at [facility] Spacer 170-060 7 / / 9mm, 6 Degree Cage Implanted:Qty: 1 on 09/23/2021 by Jr Ramon MD at [facility] Spine Components N/A: Spine Cervical 20-0609 / / Description:Audio Recording Engineer: Lisbeth vation Orthofix Mini Spacer System Intervertebral Body Fusion Spinal Device Implanted:Qty: 1 on 01/12/2023 by Jr Ramon MD at [facility] N/A: Spine Cervical 37-7006 SP / / Self Drilling Variable Screw 4.0x14mm Implanted:Qty: 4 on 01/12/2023 by Jr Ramon MD at [facility] N/A: Spine Cervical 31-4014 / / . Explanted Type Area Audio Recording Engineer Device Identifier Shelf Expiration Date Model / Serial / Lot Distration Pin 12mm - [id number] Explanted:Qty: 2 on 09/23/2021 at [facility] Pin N/A: Spine Cervical [employer] DP-12-TB / / Distration Pin 12mm - [id number] Explanted:Qty: 2 on 01/12/2023 at [facility] Pin [employer] DP-12-TB / / Insurance [facility] Advance Directives Documents on File Type Date Recorded Patient Ice House Supervisor Expl anation Power of Boat Finisher 09/25/2021 09/23/2021 Signed POA for Health Care * Full Code (Latest Code Status on File) Date Activated Date Inactivated Comments 01/12/2023 4:36 PM 01/13/2023 11:08 AM * Full Code Date Activated Date Inactivated Comments 09/23/2021 1:37 PM 09/24/2021 11:42 AM Care Teams Crusher And Binder Operator Relationship Specialty Start Date End Date Mookie Giraldo DO [address] [place] [address] PCP - General INTERNAL MEDICINE 09/10/21 Mile Ruffin NP [address] [place] [address] FAMILY PRACTICE 09/10/21 Catarino Figueroa MD [address] [place] [address] INTERNAL MEDICINE 09/10/21 Letty Sandoval MD [address] [place] [address] Pain Medicine 09/10/21
--- OUTSIDE RECORDS SUMMARY | 2025-04-05 12:24 | XMS_ITS | Clinical Summary ---
Author Organization [facility] Address [address] [place] [address] Care Team Providers Care Stitchdown Toe Former Name Role Phone Danuta Patiño NP Primary Care Provider [phone] Allergies No known active allergies Medications naproxen (NAPROSYN) 500 mg tablet Take 1 tablet (500 mg total) by mouth 2 (two) times a day as needed for pain Take with food. 30 tablet 1 Active testosterone enanthate 200 mg/mL injection Inject 200 mg into the muscle as instructed every 7 days Active fish lxz-pbedp-3-vit C-vit E 2,000-650-12 mg/2.5 gram emulsion in packet Take by mouth Active magnesium gluconate 200 mg tabletIndicatio ns:hypomagnesem ia 200 mg Active zinc 50 mg tablet Take by mouth Active predniSONE (DELTASONE) 20 mg tablet 20 mg p.o. b.i.d. x5 days 10 tablet 1 Active cyclobenzaprine (FLEXERIL) 10 mg tablet Take 1 tablet (10 mg total) by mouth 2 (two) times a day as needed for muscle spasms 20 tablet 1 Active aspirin 81 mg chewable tablet Take 1 tablet (81 mg total) by mouth daily 20 tablet 1 Active ibuprofen (ADVIL,MOTRIN) 800 mg tablet Take 1 tablet (800 mg total) by mouth 3 (three) times a day as needed for pain With food 15 tablet 1 Active Active Problems Problem Noted Date Diagnosed Date Hyperopia of both eyes 11/10/2022 Assessment & Plan (11/10/2022 12:27 PM CDT): Hyperopia OD Presbyopia OU Pterygium OD +1 NS OU Did not recommend LASIK Discussed clear lens exchange versus waiting until he qualifys for cataract surgery. After discussing both options the patient elected to wait for cataracts to develop and have insurance help with cost of surgery. Surgical History Surgery Date Site/Laterality Comments BACK SURGERY KNEE ARTHROSCOPY Medical History Medical History Date Comments No pertinent past medical history Family History Medical History Relation Name Comments Heart disease Father Cancer Mother Relation Name Status Comments Father Mother Social History Tobacco Use Types Packs/Day Years Used Date Smoking Tobacco: Never Smokeless Tobacco: Former Alcohol Use Standard Drinks/Week Comments Not Currently 0 (1 standard drink = 0.6 oz pur e alcohol) Personal Safety Answer Date Recorded Getting School Help Needed Not on file 06/30 Sex and Gender Information Value Date Recorded Sex Assigned at Not on file Legal Sex Male 2:52 PM GUM SPRAYER Gender Identity Not on file Sexual Orientation Not on file Obstetrics History Last Filed Vital Signs Vital Sign Reading Time Taken Comments Blood Pressure 112/76 06/05/2021 12:00 PM GUM SPRAYER Pulse 82 06/05/2021 12:00 PM GUM SPRAYER Temperature 36.5 C (97.7 F) 06/05/2021 6:21 AM GUM SPRAYER Respiratory Rate 14 06/05/2021 12:00 PM GUM SPRAYER Oxygen Saturation 93% 06/05/2021 12:00 PM GUM SPRAYER Inhaled Oxygen Concentration - - Weight 79.4 kg (175 lb) 06/05/2021 6:21 AM GUM SPRAYER Height 162.6 cm (5' 4) 06/05/2021 6:21 AM GUM SPRAYER Body Mass Index 30.04 06/05/2021 6:21 AM GUM SPRAYER Plan of Treatment Health Maintenance Due Date Last Done Comments Colon Cancer Screening-Colonoscopy 1962 Depression Screening 1962 Hepatitis C Screening 1962 Prostate Cancer Screening-PSA 1962 Hepatitis B Screening 1980 Regular Well Visit/Exam 18-64 1980 Zoster Vaccine (2 of 3) 08/17/2015 06/22/20 15, 06/08/2015, 05/25/2015 Influenza Vaccine (#1) 2025 5, 06/08/2015, 05/25/2015 DTaP/Tdap/Td Vaccine (2 - Td or Tdap) 02/19/2030 02/20/2020 Pneumococcal vaccine <65 Aged Out No longer eligible based on patient's age to complete this topic Insurance [employer] [facility] CHOICE [facility] HMO/PPO Address: [address] [address] [place] [address] Care Teams Stitchdown Toe Former Relationship Specialty Start Date End Date Danuta Patiño, SALES RECRUITMENT SPECIALIST PCP - General Nurse Practitioner 12/20/21
--- NOTE | 2025-04-05 12:41 | ED.GENADULT ---
HPI - General Adult General Chief complaint: Headache Stated complaint: CAOR, Dizzy, CP Time Seen by Provider: 04/05/25 11:55 History of Present Illness HPI narrative: This 64-year-old male with a history of chronic pain presenting for 2 complaints. Patient states that he has had intermittent headache for the last 3 weeks. Headache is from muslim to muslim and wraps around the back of his head. It is described as a throbbing or a pressure. It has been gradual in onset and fluctuates over the last 3 weeks going from times when he had a cannot even feel it too severe pain. It does not radiate. He has never had a headache like this before. There are no exacerbating or alleviating factors. He feels that when he rubs his neck he becomes lightheaded. Headache is not associated with neurologic deficits, visual changes, loss of consciousness or exertion. Patient's 2nd complaint is chest pain. Patient says for last 3 weeks he has developed a sharp pain on the left side his chest. It is nonradiating, moderate in intensity. It comes and goes. Has never happened before there are no exacerbating or alleviating factors. Is not related to exertion, vomiting, diaphoresis. He does not have a fever, productive cough, lower extremity edema or was factors for DVT PE. He is not short of breath. He does not have abdominal pain. Patient has chronic pain and says he has constant pain in most areas of his body but he does not associate any new pains with these 2 new symptoms. Patient is currently headache and chest pain-free at this time. He is only in the arcus he went to his primary care physician for a standard checkup was redirected to the emergency room. 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, knee Acute right hip pain Right knee pain Hypogonadism in male Hemorrhoids Mumps Chicken pox Herniated disc Surgical History Surgical History H/O eye surgery H/O neck surgery 2022 H/O lumbosacral spine surgery x 3 1984, 1999, 2002 H/O surgical fusion joint C6 - C7 ACDF 09/23/21 Family History Family History Mother Family history of malignant neoplasm Father Family history of coronary artery disease Social History Social History Smoking status: Never smoker Smokeless tobacco user: chewing tobacco Alcohol intake: current Drinks per week: 1 Alcohol use details: occasional Substance use: never Substance use type: does not use Lack of Transportation: No Lack of Food: Never True Current Housing: I Have Housing Concerned About Future Housing: No Difficulty Paying Gas/Electric Bills: No Difficulty Paying for Meds: No Currently Unemployed: No Education: Associate Degree Difficulty w/ Childcare or Family Care: No Living arrangements: with family Occupation/Education: retired Gender identity (if verbalized by the patient): Male Spiritual care concerns: No Exam Narrative: APPEARANCE: No apparent distress. Head: atraumatic. EYES: EOMI, NOSE: Atraumatic NECK: Trachea midline RESPIRATORY: No increased rate of breathing clear to auscultation speaking full sentences CARDIOVASCULAR: RRR, no peripheral edema, +2 pulses all extremities ABDOMINAL: Non-distended MUSCULOSKELETAl: No obvious deformities NEURO: Alert. Cranial nerves 2-12 grossly intact. Sensation light touch, motor function cerebellar function intact for 4 extremities. Gait exam was normal. SKIN:: Warm, dry. Normal color PSYCHIATRIC: Normal affect Course Vital Signs Vital signs: Vital Signs Pulse Rate 69 04/05/25 12:15 Respiratory Rate 16 04/05/25 12:15 Blood Pressure 122/72 04/05/25 12:15 Pulse Oximetry 93 04/05/25 12:15 Pulse Rate 66 04/05/25 15:30 Respiratory Rate 16 04/05/25 15:30 Blood Pressure 122/72 04/05/25 12:15 Pulse Oximetry 97 04/05/25 15:30 Medical Decision Making MDM Narrative Medical decision making narrative: -Course: 64-year-old male presenting for 2 complaints. First complaint was chest pain. Patient was having pleuritic chest pain over the last several weeks. He is currently pain-free. His workup including EKG x2, troponin x2 D-dimer chest x-ray and CT was negative for causative findings. Patient is also presenting with a new headache associated with dizziness on neck movement. CTA was ordered to evaluate for intracranial hemorrhage/dissection and other causes of dangerous headache. CTA was within normal limits but it did find a possibly abnormal lymph node in the patient's chest. CT chest abdomen pelvis was ordered to further evaluate which was negative for concerning lymph nodes or any other findings. Patient was informed of his results. His headache did recur during his prolonged stay in ED although he says it is very mild and he was treated with Toradol. Patient be discharged to follow-up with his primary care physician for further management. -DDX includes but is not limited to: Tension headache, migraine, occipital neuralgia, cervical/vertebral dissection, ACS, PE, pneumothorax, neoplasm Independent EKG interpretation: Rhythm [sinus], Rate [66], [place] -[normal], [place] -[normal], QRS [narrow], QTC [normal], T waves -[negative for concerning inversions], ST Segments - [Negative for concerning elevations] Final interpretations: [Normal Sinus Rhythm] -Co-morbidities complicating care: Chronic pain Vital Signs Vital Signs: Vital Signs Pulse Rate 69 04/05/25 12:15 Respiratory Rate 16 04/05/25 12:15 Blood Pressure 122/72 04/05/25 12:15 Pulse Oximetry 93 04/05/25 12:15 Pulse Rate 66 04/05/25 15:30 Respiratory Rate 16 04/05/25 15:30 Blood Pressure 122/72 04/05/25 12:15 Pulse Oximetry 97 04/05/25 15:30 Lab Data 04/05/25 13:22 04/05/25 13:22 Labs: Lab Results 04/05/25 04/05/25 04/05/25 Range/Units 13:22 14:16 15:45 WBC 9.7 (4.5-10.0) K/mm3 RBC 6.28 H (4.6-6.20) M/mm3 Hgb 18.7 H (14.0-18.0) g/dL Hct 56.3 H (42.0-52.0) % MCV 89.6 (80-100) fl MCH 29.8 (26-34) pg MCHC 33.2 (32-36) g/dl RDW 13.2 (11.5-14.5) % Plt Count 226 (150-375) k/mm3 MPV 9.2 (7.4-10.4) fl Immature Gran % (Auto) 0.3 (0-0.5) % Neut % (Auto) 67.9 (45.5-73.1) % Lymph % (Auto) 20.3 (18.3-44.2) % Thayer % (Auto) 8.7 H (2.6-8.5) % Eos % (Auto) 2.1 (0-4.4) % Baso % (Auto) 0.7 (0.2-1.2) % Lymph # (Auto) 1.98 (0.9-3.2) K/mm3 Thayer # (Auto) 0.9 H (0.1-0.6) K/mm3 Eos # (Auto) 0.2 (0-0.3) K/mm3 Baso # (Auto) 0.1 (0.0-0.1) K/mm3 Abs Immat Gran (auto) 0.03 (0.00-0.031) K/mm3 Absolute Neuts (auto) 6.6 (1.3-6.7) K/mm3 Absolute Nucleated RBC 0.000 (0.0-0.012) K/mm3 Nucleated RBC % 0.0 (0.0-0.2) % PT 13.9 (11.1-14.7) Seconds INR 1.1 APTT 27.1 (22.3-36.8) Seconds D-Dimer < 0.27 (<0.48) ug/mL Sodium 138 (137-145) mmol/L Potassium 4.2 (3.4-5.0) mmol/L Chloride 102 (98-107) mmol/L Carbon Dioxide 28 (22-30) mmol/L Anion Gap 8 (4-12) mmol/L BUN 15 D (9-20) mg/dL Creatinine 0.97 (0.7-1.3) mg/dL Estim Creat Clear Calc Not Reportable Estimated GFR > 60 (59 - ) Glucose 94 (65-110) mg/dL Calcium 9.1 (8.4-10.2) mg/dL Magnesium 2.3 (1.6-2.3) mg/dL Total Bilirubin 0.9 (0.2-1.3) mg/dL AST 30 (17-59) U/L ALT 28 (6-50) U/L Alkaline Phosphatase 46 (38-126) U/L Troponin I < 0.012 < 0.012 (0.000-0.034) ng/mL NT-Pro-B Natriuret Pep < 20 (19.9-100) pg/mL Total Protein 7.7 (6.3-8.2) g/dL Albumin 4.5 (3.5-5.1) g/dL Lipase 104 (23-300) U/L Urine Color Yellow (Yellow) Urine Appearance Clear (Clear) Urine pH 7.5 (5.0-9.0) Ur Specific [place] 1.009 (1.001-1.035) Urine Protein Negative (Negative) mg/dL Urine Glucose (UA) Negative (Negative) mg/dL Urine Ketones Negative (Negative) mg/dL Ur Blood (Man) Negative (Negative) Urine Nitrate Negative (Negative) Urine Bilirubin Negative (Negative) Urine Urobilinogen 0.2 (<2.0) mg/dL Leukocyte Esterase Rfl Negative (Negative) ARCHIE/UL Influenza A (RT-PCR) Negative (Negative) Influenza B (RT-PCR) Negative (Negative) RSV (RT-PCR) Negative (Negative) SARS-CoV-2 RNA (RT-PCR) Negative (Negative) Discharge Plan Discharge Clinical Impression: Headache, Chest pain Patient Disposition: Home Condition: Stable Instructions: Antibiotic Form, Chest Pain (ED), Acute Headache (ED) Additional Instructions: He was seen emergency department for headache and chest pain. Thankfully your workup here was negative. Please use Motrin Tylenol for headaches. Please follow-up with your primary care physician for further management. If you develop any new or worsening symptoms return to ED for re-evaluation. Patient Language: Sammarinese Prescriptions: No Action testosterone cypionate 100 mg/mL Oil 0.75 mg IM WEEKLY Follow-up/Referrals: Mookie Giraldo DO [Primary Care Provider, Internal Medicine] - 1 Week Referral Note: headache
[2025-04-05 13:33] LABS: Add Urine Microscopic? NO; Appearance Urine Clear (Clear); Glucose Urine UA Negative (Negative); Leukocyte Esterase Ur Negative LEU/UL (Negative); Nitrate Urine Negative (Negative); Specific Grav Ur 1.009 (1.001-1.035)
[2025-04-05 13:34] LABS: Hemoglobin 18.7 g/dL (14.0-18.0); Immature Granulocyte Percent A 0.3 % (0-0.5); Lymphocytes Absolute Auto 1.98 K/mm3 (0.9-3.2); Mean Corpuscular HGB Conc 33.2 g/dl (32-36); Mean Corpuscular Hemoglobin 29.8 pg (26-34); Mean Corpuscular Volume 89.6 fl (80-100); Nucleated Red Blood Cells Absolute Auto 0.000 K/mm3 (0.0-0.012); Nucleated Red Blood Cells Perc 0.0 % (0.0-0.2); Platelet Count Result 226 k/mm3 (150-375); Red Blood Count 6.28 M/mm3 (4.6-6.20); White Blood Count 9.7 K/mm3 (4.5-10.0)
[2025-04-05 13:46] LABS: Alanine Aminotransferase 28 U/L (6-50); Albumin Level 4.5 g/dL (3.5-5.1); Alkaline Phosphatase 46 U/L (38-126); Anion Gap 8 mmol/L (4-12); Aspartate Amino Transferase 30 U/L (17-59); Bilirubin,Total 0.9 mg/dL (0.2-1.3); Blood Urea Nitrogen 15 mg/dL (9-20); Calcium 9.1 mg/dL (8.4-10.2); Carbon Dioxide 28 mmol/L (22-30); Chloride 102 mmol/L (98-107); Estimated Glomerular Filt Rate > 60; Glucose 94 mg/dL (65-110); Lipase 104 U/L (23-300); Magnesium 2.3 mg/dL (1.6-2.3); Potassium 4.2 mmol/L (3.4-5.0); Sodium 138 mmol/L (137-145); Total Protein 7.7 g/dL (6.3-8.2)
[2025-04-05 13:47] LABS: Hematocrit 56.3 % (42.0-52.0)
[2025-04-05 13:58] LABS: NT Pro B Type Natriuretic Pept < 20 pg/mL (19.9-100); Troponin I < 0.012 ng/mL (0.000-0.034)
[2025-04-05 14:09] LABS: Influenza A QL RT-PCR Negative (Negative); Influenza B QL RT-PCR Negative (Negative); RSV RNA, RT-PCR Negative (Negative); SARS-CoV-2 RNA PCR Negative (Negative)
[2025-04-05 14:33] LABS: INR 1.1; Prothrombin Time 13.9 Seconds (11.1-14.7)
[2025-04-05 14:34] LABS: Partial Thromboplastin Time 27.1 Seconds (22.3-36.8)
[2025-04-05 15:30] VITALS: PULSE 66; RESP 16; O2SAT 97
[2025-04-05 16:12] LABS: Troponin I < 0.012 ng/mL (0.000-0.034)
[2025-04-05] MEDS: KETOROLAC 15 MG/ML VIAL (*BKC) IV PUSH (18:59)
[2025-04-05 19:18] VITALS: BP 138/87; PULSE 78; RESP 17; O2SAT 99
== END 2025-04-05 19:06 | disposition home or self-care (01) ==
PROVIDERS: Emergency Provider Emergency Medicine; PCP Internal Medicine
DX: R07.81 Pleurodynia (principal); R07.9 Chest pain, unspecified; R51.9 Headache, unspecified; Z20.822 Contact with and (suspected) exposure to COVID-19; G89.29 Other chronic pain; G47.30 Sleep apnea, unspecified; M16.9 Osteoarthritis of hip, unspecified; M17.9 Osteoarthritis of knee, unspecified; Z98.1 Arthrodesis status; F17.220 Nicotine dependence, chewing tobacco, uncomplicated
CPT/HCPCS: 36415; 70496; 70498; 71045; 71046; 71260; 74177; 80053; 81003; 83690; 83735; 83880; 84484; 85025; 85380; 85610; 85730; 87637; 93005; 96374; 99284; J1885; Q9967

== ENCOUNTER 2025-05-02 08:16 | Outpatient (CLI) | payer OTHER, MEDICARE, SELFPAY ==
--- OUTSIDE RECORDS SUMMARY | 2023-12-19 16:30 | XMS_ITS ---
Author Organization [facility] [facility] [employer] [place] ([address]) Address [address] [place] [address] Care Team Providers Care Bareback Rider Name Role Phone Patiño Danuta Primary Care Provider Unavailabl Elie Remy Unavailable [phone] [facility], Provider Unavailable Unavailab le [facility] Conversion Encounter Medications Medication SIG (Take, Route, Frequency, Duration) Notes Start Date End Date Status NASAL WASHES N/A DIRECTED INTRANASALLY NEEDED; Duration: 30 *Please review for potential replacement for e-prescription and drug interaction check* 04/28/2023 Active Cetirizine HCl 10 MG 1 tab(s) orally once a day; Duration: 30 days 04/28/2023 Active Fluticasone Propionate 50 MCG/ACT 2 spray(s) in each nostril BID; Duration: 30 day(s) 04/28/2023 Active Encounters Encounter Location Date Provider Diagnosis [address] [address] 12/19/2023 Provider [facility] Allergic rhinitis due to pollen J30.1 Assessments Encounter Date Diagnosis (ICD Code) Assessment Notes Treatment Notes Treatment Clinical Notes Section Notes 12/19/2023 Allergic rhinitis due to pollen (ICD-10 - J30.1) Plan Of Treatment Medication Medication Name Sig Start Date Stop Date Notes NASAL WASHES N/A DIRECTED INTRANASALLY NEEDED; Duration: 30 04/28/2023 *Please review for potential replacement for e-prescription and drug interaction check* Cetirizine HCl 10 MG 1 tab(s) orally onc e a day; Duration: 30 days 04/28/2023 Fluticasone Propionate 50 MCG/ACT 2 spray(s) in each nostril BID; Duration: 30 day(s) 04/28/2023 Progress Notes * Cachorro COULTERDOB:[birth year] (64 yo M)Acc No.[id number]:12/19/2023 Patient: Cachorro GARCIA Provider: Sergio Tesfaye :1960 A ge:63 Y S ex:Male Date:12/19/2023 Address:[address] [place], [place] [id number] Pcp:Danuta Patiño Subjective: * Chief Complaints: * 1 . [facility] Conversion Encounter. * Medical History: Objective: * Vitals: Assessment: * Assessment: 1. A llergic rhinitis due to pollen - J30.1 (Primary) Plan: * Treatment: * Billing Information: * Visit Code: * Procedure Codes: * Electronic signature of Prov jocelyner [facility] on 05/02/2025 at 08:31 AM CDT Sign off status: Pending * Provider: Sergio Tesfaye Date: 0 12/19/2023 Generated for Umm young/Niru/Coreen on: 1 08:31 AM CDT
--- NOTE | 2025-05-02 08:22 | EST_ITS ---
Patient Info Name: Cachorro Darby Age: 64 years : 1960 Gender: Male Ht: 64 in Wt: 175 lbs BSA: 1.92 m2 HR: 70 bpm BP: 127 / 76 mmHg Exam Date: 05/02/2025 8:22 AM Patient Status: O Admit Date: 05/02/2025 Exam Type: CA stress test treadmill A treadmill exercise stress test was performed. Staff Referring Physician: Sujata Dubon Attending Provider: Sujata Dubon Exercise Technologist: Anastasiia Stanley Exercise Physician: Lalo Kent DO Summary 1. 1. Negative [place] exercise stress test for ischemic ST changes by ECG criteria. 2. 2. Good functional capacity, achieving 10 METs of workload. 3. 3. Appropriate HR response to exercise. 4. 4. Appropriate HR recovery at 1 minute post exercise. 5. 5. No imaging with stress testing. 6. 6. Patient informed of the above results. Protocol: [place] Stress ECG Details Stage: REST Duration (min): 1 min : 41 sec Speed (mph): 0.0 Grade (%): 0 HR (bpm): 68 SBP (mmHg): 127 DBP (mmHg): 76 METS: --- Stage: REST Duration (min): 7 min : 4 sec Speed (mph): 0.0 Grade (%): 0 HR (bpm): 76 SBP (mmHg): 127 DBP (mmHg): 76 METS: --- Stage: STAGE 1 Duration (min): 1 min : 0 sec Speed (mph): 1.7 Grade (%): 10 HR (bpm): 107 SBP (mmHg): 127 DBP (mmHg): 76 METS: --- Stage: STAGE 1 Duration (min): 2 min : 0 sec Speed (mph): 1.7 Grade (%): 10 HR (bpm): 111 SBP (mmHg): 127 DBP (mmHg): 76 METS: --- Stage: STAGE 1 Duration (min): 3 min : 0 sec Speed (mph): 1.7 Grade (%): 10 HR (bpm): 114 SBP (mmHg): 174 DBP (mmHg): 62 METS: --- Stage: STAGE 2 Duration (min): 1 min : 0 sec Speed (mph): 2.5 Grade (%): 12 HR (bpm): 122 SBP (mmHg): 174 DBP (mmHg): 62 METS: --- Stage: STAGE 2 Duration (min): 2 min : 0 sec Speed (mph): 2.5 Grade (%): 12 HR (bpm): 120 SBP (mmHg): 179 DBP (mmHg): 88 METS: --- Stage: STAGE 2 Duration (min): 3 min : 0 sec Speed (mph): 2.5 Grade (%): 12 HR (bpm): 125 SBP (mmHg): 179 DBP (mmHg): 88 METS: --- Stage: STAGE 3 Duration (min): 1 min : 0 sec Speed (mph): 3.4 Grade (%): 14 HR (bpm): 136 SBP (mmHg): 193 DBP (mmHg): 82 METS: --- Stage: STAGE 3 Duration (min): 2 min : 0 sec Speed (mph): 3.4 Grade (%): 14 HR (bpm): 135 SBP (mmHg): 193 DBP (mmHg): 82 METS: --- Stage: STAGE 3 Duration (min): 2 min : 0 sec Speed (mph): 3.4 Grade (%): 14 HR (bpm): 135 SBP (mmHg): 193 DBP (mmHg): 82 METS: --- Stage: RECOVERY Duration (min): 0 min : 59 sec Speed (mph): 0.0 Grade (%): 0 HR (bpm): 105 SBP (mmHg): 192 DBP (mmHg): 77 METS: --- Stage: RECOVERY Duration (min): 1 min : 59 sec Speed (mph): 0.0 Grade (%): 0 HR (bpm): 97 SBP (mmHg): 192 DBP (mmHg): 77 METS: --- Stage: RECOVERY Duration (min): 2 min : 59 sec Speed (mph): 0.0 Grade (%): 0 HR (bpm): 97 SBP (mmHg): 127 DBP (mmHg): 77 METS: --- Stage: RECOVERY Duration (min): 3 min : 34 sec Speed (mph): 0.0 Grade (%): 0 HR (bpm): 94 SBP (mmHg): 127 DBP (mmHg): 77 METS: --- Rest HR: 76 bpm Peak HR: 137 bpm Rest Sys BP: 127 mmHg Peak Sys BP: 193 mmHg Max Pred HR: 158 bpm % Max Pred HR: 87 % Target HR: 134 bpm Max RPP: 26,441 bpm*mmHg Aleman Score: -3 Termination Reason: Reached target heart rate or workload Cardiac Symptoms: Shortness of breath Max ST Seg Deviation: -2.20 mm Total Time: 8 min : 0 sec Rest Gayle BP: 76 mmHg Peak Gayle BP: 82 mmHg Angina Score: None Total METS: 10.3 Resting ECG Sinus rhythm. Stress ECG Borderline ST-T wave abnormality in inferior leads. Arrhythmias None. Report Signatures
--- OUTSIDE RECORDS SUMMARY | 2025-05-02 08:30 | XMS_ITS | Encounter Summary ---
Author Organization [facility] Address [facility] [address] [place] [address] Care Team Providers Care Customer Trainer Name Role Phone Mookie Giraldo DO Primary Care Provider [phone] Mile Ruffin SAP CONSULTANT Unavailable [phone] Catarino Figueroa MD Unavailable [phone] Letty Sandoval MD Unavailable [phone] Encounter Details Date Type Department Care Team (Late st Contact Info) Description 09/10/2021 Prep for Procedure [facility] [place], [place] [address] Jr Ramon MD [address] [facility] [address] [place], [place] [id number] Social History Tobacco Use Types Packs/Day Years [...] on file Legal Sex Male 1:36 PM TRIMMING CUTTER Gender Identity Male 09/09/2021 4:18 PM TRIMMING CUTTER Sexual Orientation Straight 09/09/2021 4: 18 PM TRIMMING CUTTER COVID-19 Exposure Response Date Recorded In the last 10 days, have yo u been in contact with someone who was confirmed or suspected to have Coronavirus/COVID-19? No / Unsure 09/10/2021 8:12 AM TRIMMING CUTTER documented as of this encounter Functional Status * Calculated C-SSRS Risk Score (Lifetime/Recent) Answer Date of Assessment Author Status No Risk Indicated 09/10/2021 8:55 AM TRIMMING CUTTER Brinda Felton RN Active * [place] Suicide Severity Rating Scale (Screener/Recent Self-Report) Question Answer Date of Assessment Author Status 1. Wish to be (Past 1 Month) No 09/10/2021 8:55 AM TRIMMING CUTTER Araceli Felton RN A ctive 2. Non-Specific Active Suicidal Thoughts (Past 1 Month) No 09/10/2021 8:55 AM TRIMMING CUTTER Araceli Felton RN A ctive 6. Suicidal Behavior (Lifetime) No 09/10/2021 8:55 AM TRIMMING CUTTER Araceli Felton RN A ctive documented as of this encounter Plan of Treatment Not on file documented as of this encounter Results * TYPE & SCREEN (09/10/2021 9:15 AM TRIMMING CUTTER) ABO/RH B POSITIVE 09/10/2021 12:14 PM TRIMMING CUTTER [facility] ANTIBODY SCREEN NEGATIVE 09/10/2021 12:14 PM [facility] SAMPLE EXPIRATION 09/26/2021,2 359 09/23/2021 8:01 AM T [facility] COMMENT NO HISTORY OF TRANSFUSIONS , OR ANTIBODIES, NEW SPECIMEN NOT NEEDED 09/23/2021 8:01 AM [facility] 09/10/2021 9:15 AM TRIMMING CUTTER us Jr Ramon MD BLOOD BANK TEST ORDERABLES F inal Result [facility] [address] [place] [address], [place] [phone] documented in this encounter Visit Diagnoses Diagnosis Preop examination- Primary Preoperative examination, unspecified documented in this encounter Additional Health Concerns Infection Onset Date Last Indicated Resolved Time COVID-19 Rule Out 09/20/2021 09/20/2021 09/20/2021 7:52 PM CDT documented as of this encounter Care Teams Customer Trainer Relationship Specialty Start Date End Date Mookie Giraldo DO [address] [place] [address] PCP - General INTERNAL MEDICINE 09/10/21 Mile Ruffin NP [address] [place] [address] FAMILY PRACTICE 09/10/21 Catarino Figueroa MD [address] [place] [address] INTERNAL MEDICINE 09/10/21 Letty Sandoval MD [address] [place] [address] Pain Medicine 09/10/21 documented as of this encounter
--- OUTSIDE RECORDS SUMMARY | 2025-05-02 08:30 | XMS_ITS | Patient Health Record ---
Author Organization [facility] [facility] ([address]) Address [address] [place] [address] Care Team Providers Care Unit Control Clerk Name Role Phone Danuta Patiño Primary Care Provider Elie Gresham Unavailable [phone] Allergies No Known Allergies Reason For Referral No Information Medications Medication SIG (Take, Route, Frequency, Duration) [...] nostril BID; Duration: 30 day(s) 04/28/2023 Active FLUTICASONE NASAL 50 mcg/inh 2 spray(s) in each nostril BID; Duration: 30 day(s) 04/28/2023 Active CETIRIZINE 10 mg 1 tab(s) orally once a day; Duration: 30 days 04/28/2023 Active Social History Tobacco Use: Social History Observation Description Date Details (start date - stop date) Unknown Smoking Smart Form: Question Answer Notes Are you a: Uses tobacco in other forms Additional Findings:Tobacco User Chews tobacco Problems Problem Type SNOMED Code ICD Code Onset Dates Problem Status W/U Status Risk Notes Problem Chronic allergic conjunctivitis (47459144) Other chronic allergic conjunctivitis (H10.45) Active confirmed Problem Allergic rhinitis caused by pollen (disorder) (12558799) Allergic rhinitis due to pollen (J30.1) Active confirmed Problem Allergic rhinitis (47858750) Other allergic rhinitis (J30.89) Active confirmed Problem Allergic rhinitis caused by animal hair and dander ([id number]) Allergic rhinitis due to animal (cat) (dog) hair and dander (J30.81) Active confirmed Plan Of Treatment No Information Insurance Providers Payer Name Payer Address Payer Phone Subscriber Number Group Number Insured Name Patient Relationship to Insured Coverage Start Date Coverage End Date [facility] Options [address] [place] [phone] [id number] Cachorro Darby Self - patient is the insured [facility] [address] [place] [address] [id number] Cachorro Darby Self - patient is the insured 3 4 Medical (General) History Surgical History Surgery Date(Month/Year) cervical fusion vasectomy lumbar disectomy right knee surgery left knee arthroscopic surgery Hospitalization History Reason Date(Month/Year) see surgical history
--- OUTSIDE RECORDS SUMMARY | 2025-05-02 08:31 | XMS_ITS | Clinical Summary ---
Author Organization [facility] Address [address] [place] [address] Care Team Providers Care Home Health Caregiver Name Role Phone Mookie Giraldo DO Primary Care Provider [phone] Mile Ruffin POLISHER BALANCE SCREWHEAD Unavailable [phone] Catarino Figueroa MD Unavailable [phone] Letty Sandoval MD Unavailable [phone] Allergies No known active allergies Medications testosterone [...] and heating? Not hard at all 01/12/2023 [facility] - [...] place to sleep or slept in a halfway (including now)? No 01/12/2023 Sex and Gender Information Value Date Recorded Sex Assigned at Not on file Legal Sex Male 1:36 PM SOLAR ELECTRIC PRACTITIONER Gender Identity Male 09/09/2021 4:18 PM SOLAR ELECTRIC PRACTITIONER Sexual Orientation Straight 09/09/2021 4: 18 PM SOLAR ELECTRIC PRACTITIONER Last Filed Vital Signs Vital Sign Reading [...] 2 - PCV) 06/05/2016 06/05/2015 COVID-19 Vaccine (2024- season) 2025 Influenza Adult (#1) 2025 04/19/2015, 04/05/2010, 08/09/2009, Additional history exists DTaP, Tdap and Td Vaccines (4 - Td or Tdap) 02/19/2030 02/20/2020, 03/03/2017, 07/06/2007, Additional history exists RSV Immunization or 60+ Years (1 - 1-dose 75+ series) 2037 Hepatitis A Vaccines Aged Out 06/13/2000 No long er eligible based on patient's age to complete this topic Meningococcal Vaccine Aged Out 09/23/2002, 999 No longer eligible based on patient's age to complete this topic Meningococcal B Vaccine Aged Out No l onger eligible based on patient's age to complete this topic RSV Immunizations Under 20 Months Aged Out No longer eligible based on patient's age to complete this topic Medical Devices Implanted Type Area Control Room Tender Device Identifier Shelf Expiration Date Model / Serial / Lot Graft Bone I Factor 1cc Allograft Putty Syringe - [id number] Implanted:Qty: 1 on 09/23/2021 by Jr Ramon MD at [facility] Bone N/A: Spine Cervical [employer] [id number] 05/05/2024 700-010 / / [id number] 16mm Plate Implanted:Qty: 1 on 09/23/2021 by Jr Ramon MD at [facility] Plate N/A: Spine Cervical 30-0116 / / Zavation 7mm Plate Implanted:Qty: 1 on 01/12/2023 by Jr Ramon MD at [facility] Plate 170-07 / / . 12 Mm Plate Zavation Implanted:Qty: 1 on 01/12/2023 by Jr Ramon MD at [facility] Plate N/A: Spine Cervical . 30-0112 / / . 4.0 X 14mm Screw Implanted:Qty: 4 on 09/23/2021 by Jr Ramon MD at [facility] Screw N/A: Spine Cervical 31-4014 / / Description:Control Room Tender: Lisbeth vation 4.0mm X 16mm Screw Zavation Implanted:Qty: 2 on 01/12/2023 by Jr Ramon MD at [facility] Screw N/A: Spine Cervical . 31-4016 / / . Tissue Surgiflo 8ml - [id number] Implanted:Qty: 1 on 01/12/2023 by Jr Ramon MD at [facility] Sealant [employer] . 11/03/2023 [id number] / / [id number] Zavation 7mm Spacer Implanted:Qty: 1 on 01/12/2023 by Jr Ramon MD at [facility] Spacer 170-060 7 / / 9mm, 6 Degree Cage Implanted:Qty: 1 on 09/23/2021 by Jr Ramon MD at [facility] Spine Components N/A: Spine Cervical 20-0609 / / Description:Control Room Tender: Lisbeth vation Orthofix Mini Spacer System Intervertebral Body Fusion Spinal Device Implanted:Qty: 1 on 01/12/2023 by Jr Ramon MD at [facility] N/A: Spine Cervical 37-7006 SP / / Self Drilling Variable Screw 4.0x14mm Implanted:Qty: 4 on 01/12/2023 by Jr Ramon MD at [facility] N/A: Spine Cervical 31-4014 / / . Explanted Type Area Control Room Tender Device Identifier Shelf Expiration Date Model / Serial / Lot Distration Pin 12mm - [id number] Explanted:Qty: 2 on 09/23/2021 at [facility] Pin N/A: Spine Cervical [employer] DP-12-TB / / Distration Pin 12mm - [id number] Explanted:Qty: 2 on 01/12/2023 at [facility] Pin [employer] DP-12-TB / / Insurance [facility] Advance Directives Documents on File Type Date Recorded Patient Before School Expl anation Power of Vending Machine Host/Hostess 09/25/2021 09/23/2021 Signed POA for Health Care * Full Code (Latest Code Status on File) Date Activated Date Inactivated Comments 01/12/2023 4:36 PM 01/13/2023 11:08 AM * Full Code Date Activated Date Inactivated Comments 09/23/2021 1:37 PM 09/24/2021 11:42 AM Care Teams Home Health Caregiver Relationship Specialty Start Date End Date Mookie Giraldo DO [address] [place] [address] PCP - General INTERNAL MEDICINE 09/10/21 Mile Ruffin NP [address] [place] [address] FAMILY PRACTICE 09/10/21 Catarino Figueroa MD [address] [place] [address] INTERNAL MEDICINE 09/10/21 Letty Sandoval MD [address] [place] [address] Pain Medicine 09/10/21
--- OUTSIDE RECORDS SUMMARY | 2025-05-02 08:31 | XMS_ITS | Encounter Summary ---
Author Organization [facility] Address [address] [place] [address] Phone Care Team Providers Care Embroidery Finisher Name Role Phone Danuta Patiño NP Primary Care Provider Encounter Details Date Type Department Care Team (Late st Contact Info) Description 10/08/2022 Telephone [facility]) [facility] [address] [facility] [address], [address] [place] [address] GridleyRobert Social History Tobacco Use Types Packs/Day Years Used Date Smoking Tobacco: Never Smokeless Tobacco: Former Alcohol Use Standard Drinks/Week Comments Not Currently 0 (1 standard drink = 0.6 oz pur e alcohol) Sex and Gender Information Value Date Recorded Sex Assigned at Not on file Legal Sex Male 2:52 PM DIESEL SERVICE TECHNICIAN Gender Identity Not on file Sexual Orientation Not on file documented as of this encounter Plan of Treatment Not on file documented as of this encounter Visit Diagnoses Not on filedocumented in this encounter Care Teams Embroidery Finisher Relationship Specialty Start Date End Date Danuta Patiño NP PCP - General Nurse Practitioner 12/20/21 documented as of this encounter
--- OUTSIDE RECORDS SUMMARY | 2025-05-02 08:31 | XMS_ITS | Clinical Summary ---
Author Organization [facility] Address [address] [place] [address] Care Team Providers Care Book Author Name Role Phone Danuta Patiño NP Primary Care Provider [phone] Allergies No known active allergies Medications naproxen (NAPROSYN) 500 mg tablet Take 1 tablet (500 mg total) by mouth 2 (two) times a day as needed for pain Take with food. 30 tablet 1 Active testosterone enanthate 200 mg/mL injection Inject 200 mg into the muscle as instructed every 7 days Active fish mnk-yivrd-6-vit C-vit E 2,000-650-12 mg/2.5 gram emulsion in [...] on file Legal Sex Male 2:52 PM REPORTS ANALYSIS MANAGER Gender Identity Not on file Sexual Orientation Not on file Obstetrics History Last Filed Vital Signs Vital Sign Reading Time Taken Comments Blood Pressure 112/76 06/05/2021 12:00 PM REPORTS ANALYSIS MANAGER Pulse 82 06/05/2021 12:00 PM REPORTS ANALYSIS MANAGER Temperature 36.5 C (97.7 F) 06/05/2021 6:21 AM REPORTS ANALYSIS MANAGER Respiratory Rate 14 06/05/2021 12:00 PM REPORTS ANALYSIS MANAGER Oxygen Saturation 93% 06/05/2021 12:00 PM REPORTS ANALYSIS MANAGER Inhaled Oxygen Concentration - - Weight 79.4 kg (175 lb) 06/05/2021 6:21 AM REPORTS ANALYSIS MANAGER Height 162.6 cm (5' 4) 06/05/2021 6:21 AM REPORTS ANALYSIS MANAGER Body Mass Index 30.04 06/05/2021 6:21 AM REPORTS ANALYSIS MANAGER Plan of Treatment Health Maintenance Due Date [...] patient's age to complete this topic Insurance [employer] EXCHANGE [facility] CHOICE PLUS Care Teams Book Author Relationship Specialty Start Date End Date Danuta Patiño, LEGAL INSTRUMENTS EXAMINER PCP - General Nurse Practitioner 12/20/21
== END 2025-05-02 08:17 | disposition home or self-care (01) ==
LOC: ANHCARD 08:18
PROVIDERS: PCP Internal Medicine; Visit Provider Nurse Practitioner
DX: R07.9 Chest pain, unspecified (principal)
CPT/HCPCS: 93017